=== PATIENT | female | born 1965 | race Caucasian/White ===

== ENCOUNTER 2020-10-18 17:04 | Emergency (ER) | payer MEDICAID ==
[~2020-10-18] VITALS: Ht 162.6 cm; Wt 118.2 kg
[~2020-10-18 17:04] MED LIST: CYCL-1 PO
[2020-10-18 17:10] VITALS: BP 122/80
[2020-10-18] MEDS ORDERED: SULF1TAB49 PO (17:34)
[2020-10-18] MEDS ORDERED: CEPH-585 PO (17:34)
== END 2020-10-18 17:59 | disposition home or self-care (01) ==
LOC: ER 17:04
DX: L03.116 Cellulitis of left lower limb (principal); G89.29 Other chronic pain; Z72.89 Other problems related to lifestyle; Z98.890 Other specified postprocedural states; Z56.0 Unemployment, unspecified; Z79.2 Long term (current) use of antibiotics
CPT/HCPCS: 87070; 87077; 87186; 99283

== ENCOUNTER 2021-02-17 08:59 | Emergency (ER) | payer MEDICAID ==
[~2021-02-17] VITALS: Ht 162.6 cm; Wt 113.9 kg
--- NOTE | 2021-02-17 09:16 | NUR ---
Patient in waiting room, CXR was ordered.
[2021-02-17] MEDS ORDERED: ALBU6.7H9 INH (09:19)
--- NOTE | 2021-02-17 09:53 | NUR ---
Patient was seen and treated by PA in [facility]. Disch home with Rx and flu inst. Patient eshibits understanding.
[2021-02-17 09:54] VITALS: BP 138/92
== END 2021-02-17 10:01 | disposition home or self-care (01) ==
LOC: ER 09:00
DX: J45.20 Mild intermittent asthma, uncomplicated (principal); R07.81 Pleurodynia; R22.1 Localized swelling, mass and lump, neck; F17.210 Nicotine dependence, cigarettes, uncomplicated; Z76.0 Encounter for issue of repeat prescription; Z71.6 Tobacco abuse counseling
CPT/HCPCS: 71046; 99283; 99406

== ENCOUNTER 2021-02-19 08:08 | Emergency (ER) | payer MEDICAID ==
[~2021-02-19] VITALS: Ht 162.6 cm; Wt 115.0 kg
[~2021-02-19 08:08] MED LIST changes: +ALBU6.7H9 INH
[2021-02-19 08:28] VITALS: BP 142/113
== END 2021-02-19 10:42 | disposition home or self-care (01) ==
LOC: ER 08:08
DX: R07.81 Pleurodynia (principal); J45.20 Mild intermittent asthma, uncomplicated; M54.6 Pain in thoracic spine; J45.909 Unspecified asthma, uncomplicated; G89.29 Other chronic pain; Z98.890 Other specified postprocedural states; Z72.89 Other problems related to lifestyle; Z56.0 Unemployment, unspecified; Z79.899 Other long term (current) drug therapy
CPT/HCPCS: 99281

== ENCOUNTER 2021-02-26 10:26 | Emergency (ER) | payer MEDICAID ==
[~2021-02-26] VITALS: Ht 160 cm; Wt 115.7 kg
[2021-02-26 10:46] VITALS: BP 151/98
[2021-02-26] MEDS ORDERED: DOXY100C2 PO (12:15)
[2021-02-26] MEDS ORDERED: ACET-2119 PO (12:27)
[2021-02-26] MEDS ORDERED: IBUP-1984 PO (12:27)
== END 2021-02-26 12:29 | disposition home or self-care (01) ==
LOC: ER 10:27
DX: L03.313 Cellulitis of chest wall (principal); R07.89 Other chest pain; R07.81 Pleurodynia; J45.909 Unspecified asthma, uncomplicated; G89.29 Other chronic pain; Z72.89 Other problems related to lifestyle; Z98.890 Other specified postprocedural states; Z56.0 Unemployment, unspecified; Z79.2 Long term (current) use of antibiotics; Z79.899 Other long term (current) drug therapy
CPT/HCPCS: 71101; 99283